=== PATIENT | female | born 1970 | race Caucasian/White ===

== ENCOUNTER 2017-06-29 22:42 | Inpatient (IN) | payer MEDICAID ==
[~2017-06-29] VITALS: Ht 165.1 cm; Wt 51.3 kg
[2017-06-29 22:53] VITALS: BP 143/93; PULSE 146; RESP 18; TEMP 97.8; O2SAT 100
[2017-06-29 22:56] VITALS: O2SAT 100; O2SAT 99
--- NOTE | 2017-06-29 22:58 | PD ---
HPI Chief Complaint: DM I, hyperglycemia Time Seen by Provider: 22:52 Travel History International Travel<30 days: No Contact w/Intl Traveler<30days: No Traveled to known affect area: No History of Present Illness HPI Patient is a 47-year-old female with history of type 1 diabetes, hypertension and seizures, presents to emergency room with complaints of nausea, vomiting and diarrhea for the past 2-3 days. Patient reports that her blood sugar has been reading high on her glucometer. Reports that she is supposed be on insulin for her diabetes, reports that she has not taken her insulin or her meds for hypertension or seizures for the past month. Patient reports that her primary care doctor stop seeing her, she did not find a new doctor to refill her prescription. Patient reports that she is very thirsty time, reports that "I think I may be in DKA." Patient reports no abdominal pain at this time, reports abdominal cramping. Patient with no fevers or chills, no chest pain or shortness breath at this time. PFSH Past Medical History Diabetes: Yes Hypertension: Yes Seizures: Yes Past Surgical History Surgical History: No Previous Surgery Social History Alcohol Use: No Tobacco Use: No Substance Use: No Allergies-Medications (Allergen,Severity, Reaction): Coded Allergies: No Known Allergies (Unverified , 06/29/17) Reported Meds & Prescriptions Reported Meds & Active Scripts Active Active Prescriptions or Reported Medications Unobtainable Review of Systems General / Constitutional: No: Fever Eyes: No: Visual changes HENT: No: Headaches Cardiovascular: No: Chest Pain or Discomfort Respiratory: No: Shortness of Breath Gastrointestinal: Positive: Nausea, Vomiting, Diarrhea, No: Abdominal Pain Genitourinary: No: Dysuria Musculoskeletal: No: Pain Skin: No Rash Neurologic: No: Weakness Psychiatric: No: Depression Endocrine: Positive: Polyuria, Polydipsia Hematologic/Lymphatic: No: Easy Bruising Physical Exam Narrative GENERAL: moderate distress SKIN: Focused skin assessment warm/dry. HEAD: Atraumatic. Normocephalic. EYES: Pupils equal and round. No scleral icterus. No injection or drainage. ENT: No nasal bleeding or discharge. Mucous membranes pink and moist. NECK: Trachea midline. No JVD. CARDIOVASCULAR: Tachycardic. No murmur appreciated. RESPIRATORY: No accessory muscle use. Clear to auscultation. Breath sounds equal bilaterally. GASTROINTESTINAL: Abdomen soft, non-tender, nondistended. Hepatic and splenic margins not palpable. MUSCULOSKELETAL: No obvious deformities. No clubbing. No cyanosis. No edema. NEUROLOGICAL: Awake and alert. No obvious cranial nerve deficits. Motor grossly within normal limits. Normal speech. PSYCHIATRIC: Anxious mood and affect; insight and judgment normal. Data Data Last Documented VS Vital Signs Date Time Temp Pulse Resp B/P (MAP) Pulse Ox O2 Delivery O2 Flow Rate FiO2 06/29/17 23:30 137 20 157/84 (108) 100 Nasal Cannula 2.00 06/29/17 22:53 97.8 Orders Orders Complete Blood Count With Diff (06/29/17 22:50) Comprehensive Metabolic Panel (06/29/17 22:50) Magnesium (Mg) (06/29/17 22:50) Beta Hydroxybutyrate (Acetone) (06/29/17 22:50) Urinalysis - C+S If Indicated (06/29/17 22:50) Blood Glucose (06/29/17 22:50) Ecg Monitoring (06/29/17 22:50) Iv Access Insert/Monitor (06/29/17 22:50) Oximetry (06/29/17 22:50) NPO (06/29/17 22:50) Arterial Blood Gas (Abg) (06/29/17 ) Ondansetron Inj (Zofran Inj) (06/29/17 23:00) Sodium Chlor 0.9% 1000 Ml Inj (Ns 1000 M (06/29/17 23:00) Sodium Chloride 0.9% Flush (Ns Flush) (06/29/17 23:00) Sodium Chlor 0.9% 1000 Ml Inj (Ns 1000 M (06/29/17 23:00) Electrocardiogram (06/29/17 ) Insulin Human Regular Inj (Novolin R Inj (06/30/17 00:15) Insulin Regular (Iv Infusion) (Novolin R (06/30/17 00:15) Potassium Chlor 20 Meq Premix (Kcl 20 Me (06/30/17 00:30) Admit To Inpatient (06/30/17 ) Continuing Education Instructor / Telemetry [email or web address].[email or web address] (06/30/17 00:26) ^ Insert Iv (06/30/17 00:26) ^ Teach Patient (06/30/17 00:26) Diet Npo (06/30/17 Breakfast) Bedside Glucose MAYDA.Q1H (06/30/17 00:26) Sodium Chlor 0.9% 1000 Ml Inj (Ns 1000 M (06/30/17 00:26) Dext 5%-Nacl 0.9% 1000 Ml Inj (D5w-Ns 10 (06/30/17 00:26) Insulin Regular (Iv Infusion) (Novolin R (06/30/17 02:01) Potassium Chlor 40 Meq Premix (Kcl 40 Me (06/30/17 00:30) Potassium Chlor 40 Meq Premix (Kcl 40 Me (06/30/17 00:30) Potassium Chlor 20 Meq Premix (Kcl 20 Me (06/30/17 00:30) Potassium Chlor 20 Meq Premix (Kcl 20 Me (06/30/17 00:30) Potassium Chlor 20 Meq Premix (Kcl 20 Me (06/30/17 00:30) Potassium Chlor 20 Meq Premix (Kcl 20 Me (06/30/17 00:30) Potassium Chlor 20 Meq Premix (Kcl 20 Me (06/30/17 00:30) Potassium Chlor 20 Meq Premix (Kcl 20 Me (06/30/17 00:30) Sodium Bicarbonate 8.4% Inj (Sodium Bica (06/30/17 00:30) Sodium Bicarbonate 8.4% Inj (Sodium Bica (06/30/17 00:30) Sodium Phosphate Inj (Sodium Phosphate I (06/30/17 00:30) Basic Metabolic Panel (Bmp) (06/30/17 05:26) Basic Metabolic Panel (Bmp) (06/30/17 11:26) Basic Metabolic Panel (Bmp) (06/30/17 17:26) Basic Metabolic Panel (Bmp) (06/30/17 23:26) Magnesium (Mg) (06/30/17 05:26) Magnesium (Mg) (06/30/17 11:26) Magnesium (Mg) (06/30/17 17:26) Magnesium (Mg) (06/30/17 23:26) Phosphorus (Po4) (06/30/17 05:26) Phosphorus (Po4) (06/30/17 11:26) Phosphorus (Po4) (06/30/17 17:26) Phosphorus (Po4) (06/30/17 23:26) Beta Hydroxybutyrate (Acetone) (06/30/17 11:26) Beta Hydroxybutyrate (Acetone) (06/30/17 23:26) ^ Initiate Protocol (06/30/17 00:26) Instruction (06/30/17 00:26) [facility] [place] Nursing Information (06/30/17 00:30) Chlorhexidine 2% Cloth (Chlorhexidine 2% (06/30/17 04:00) Chlorhexidine 2% Cloth (Chlorhexidine 2% (06/30/17 00:30) [facility]sa Pcr Surveillance (06/30/17 00:26) Inpatient Certification (06/30/17 ) Admit Order (Ed Use Only) (06/30/17 00:39) Labs Laboratory Tests Test 06/29/17 22:59 06/29/17 23:00 06/29/17 23:20 Blood Gas Puncture Site RT RADIAL Blood Gas Patient Temperature 98.6 Blood Gas HCO3 3 mmol/L Blood Gas Base Excess -25.5 mmol/L Blood Gas Oxygen Saturation 95 % Arterial Blood pH 7.18 Arterial Blood Partial Pressure CO2 7 mmHg Arterial Blood Partial Pressure O2 141 mmHG Arterial Blood Oxygen Content 24.4 Vol % Arterial Blood Carboxyhemoglobin 2.0 % Arterial Blood Methemoglobin 1.2 % Blood Gas Hemoglobin 18.1 G/DL Oxygen Delivery Device NASAL CANNULA Blood Gas Liter Flow 2 L/M White Blood Count 16.3 TH/MM3 Red Blood Count 6.35 MIL/MM3 Hemoglobin 19.1 GM/DL Hematocrit 57.6 % Mean Corpuscular Volume 90.6 FL Mean Corpuscular Hemoglobin 30.0 PG Mean Corpuscular Hemoglobin Concent 33.1 % Red Cell Distribution Width 13.4 % Platelet Count 315 TH/MM3 Mean Platelet Volume 9.9 FL Neutrophils (%) (Auto) 89.4 % Lymphocytes (%) (Auto) 6.1 % Monocytes (%) (Auto) 3.9 % Eosinophils (%) (Auto) 0.1 % Basophils (%) (Auto) 0.5 % Neutrophils # (Auto) 14.6 TH/MM3 Lymphocytes # (Auto) 1.0 TH/MM3 Monocytes # (Auto) 0.6 TH/MM3 Eosinophils # (Auto) 0.0 TH/MM3 Basophils # (Auto) 0.1 TH/MM3 CBC Comment DIFF FINAL Differential Comment Blood Urea Nitrogen 28 MG/DL Creatinine 2.04 MG/DL Random Glucose 664 MG/DL Total Protein 8.2 GM/DL Albumin 3.7 GM/DL Calcium Level 9.5 MG/DL Magnesium Level 1.8 MG/DL Alkaline Phosphatase 101 U/L Aspartate Amino Transf (AST/SGOT) 9 U/L Alanine Aminotransferase (ALT/SGPT) 12 U/L Total Bilirubin 0.8 MG/DL Sodium Level 124 MEQ/L Potassium Level 3.5 MEQ/L Chloride Level 84 MEQ/L Carbon Dioxide Level 5.7 MEQ/L Anion Gap 34 MEQ/L Estimat Glomerular Filtration Rate 26 ML/MIN B-Hydroxybutyrate 13.88 MMOL/L Urine Color LIGHT-YELLOW Urine Turbidity CLEAR Urine pH 5.0 Urine Specific [place] 1.016 Urine Protein NEG mg/dL Urine Glucose (UA) 1000 mg/dL Urine Ketones 150 mg/dL Urine Occult Blood NEG Urine Nitrite NEG Urine Bilirubin NEG Urine Urobilinogen LESS THAN 2.0 MG/DL Urine Leukocyte Esterase NEG Urine RBC 2 /hpf Urine WBC LESS THAN 1 /hpf Urine Bacteria RARE /hpf Microscopic Urinalysis Comment CULT NOT INDICATED MDM Medical Decision Making Medical Screen Exam Complete: Yes Emergency Medical Condition: Yes Interpretation(s) Vital Signs Date Time Temp Pulse Resp B/P (MAP) Pulse Ox O2 Delivery O2 Flow Rate FiO2 06/29/17 23:30 137 20 157/84 (108) 100 Nasal Cannula 2.00 06/29/17 22:56 100 Nasal Cannula 2.00 06/29/17 22:53 97.8 146 18 143/93 (110) 100 Laboratory Tests Test 06/29/17 22:59 06/29/17 23:00 06/29/17 23:20 Blood Gas Puncture Site RT RADIAL Blood Gas Patient Temperature 98.6 Blood Gas HCO3 3 mmol/L (22-26) Blood Gas Base Excess -25.5 mmol/L (-2-2) Blood Gas Oxygen Saturation 95 % (90-100) Arterial Blood pH 7.18 (7.380-7.420) Arterial Blood Partial Pressure CO2 7 mmHg (38-42) Arterial Blood Partial Pressure O2 141 mmHG (61-120) Arterial Blood Oxygen Content 24.4 Vol % (12.0-20.0) Arterial Blood Carboxyhemoglobin 2.0 % (0-4) Arterial Blood Methemoglobin 1.2 % (0-2) Blood Gas Hemoglobin 18.1 G/DL (12.0-16.0) Oxygen Delivery Device NASAL CANNULA Blood Gas Liter Flow 2 L/M White Blood Count 16.3 TH/MM3 (4.0-11.0) Red Blood Count 6.35 MIL/MM3 (4.00-5.30) Hemoglobin 19.1 GM/DL (11.6-15.3) Hematocrit 57.6 % (35.0-46.0) Mean Corpuscular Volume 90.6 FL (80.0-100.0) Mean Corpuscular Hemoglobin 30.0 PG (27.0-34.0) Mean Corpuscular Hemoglobin Concent 33.1 % (32.0-36.0) Red Cell Distribution Width 13.4 % (11.6-17.2) Platelet Count 315 TH/MM3 (150-450) Mean Platelet Volume 9.9 FL (7.0-11.0) Neutrophils (%) (Auto) 89.4 % (16.0-70.0) Lymphocytes (%) (Auto) 6.1 % (9.0-44.0) Monocytes (%) (Auto) 3.9 % (0.0-8.0) Eosinophils (%) (Auto) 0.1 % (0.0-4.0) Basophils (%) (Auto) 0.5 % (0.0-2.0) Neutrophils # (Auto) 14.6 TH/MM3 (1.8-7.7) Lymphocytes # (Auto) 1.0 TH/MM3 (1.0-4.8) Monocytes # (Auto) 0.6 TH/MM3 (0-0.9) Eosinophils # (Auto) 0.0 TH/MM3 (0-0.4) Basophils # (Auto) 0.1 TH/MM3 (0-0.2) CBC Comment DIFF FINAL Differential Comment Blood Urea Nitrogen 28 MG/DL (7-18) Creatinine 2.04 MG/DL (0.50-1.00) Random Glucose 664 MG/DL (74-106) Total Protein 8.2 GM/DL (6.4-8.2) Albumin 3.7 GM/DL (3.4-5.0) Calcium Level 9.5 MG/DL (8.5-10.1) Magnesium Level 1.8 MG/DL (1.5-2.5) Alkaline Phosphatase 101 U/L (45-117) Aspartate Amino Transf (AST/SGOT) 9 U/L (15-37) Alanine Aminotransferase (ALT/SGPT) 12 U/L (10-53) Total Bilirubin 0.8 MG/DL (0.2-1.0) Sodium Level 124 MEQ/L (136-145) Potassium Level 3.5 MEQ/L (3.5-5.1) Chloride Level 84 MEQ/L (98-107) Carbon Dioxide Level 5.7 MEQ/L (21.0-32.0) Anion Gap 34 MEQ/L (5-15) Estimat Glomerular Filtration Rate 26 ML/MIN (>89) B-Hydroxybutyrate 13.88 MMOL/L (0.00-0.39) Urine Color LIGHT-YELLOW (YELLW/STRAW) Urine Turbidity CLEAR (CLEAR) Urine pH 5.0 (5.0-8.5) Urine Specific [place] 1.016 (1.002-1.035) Urine Protein NEG mg/dL (NEG-TRACE) Urine Glucose (UA) 1000 mg/dL (NEG) Urine Ketones 150 mg/dL (NEG) Urine Occult Blood NEG (NEG) Urine Nitrite NEG (NEG) Urine Bilirubin NEG (NEG) Urine Urobilinogen LESS THAN 2.0 MG/DL (LESS Urine Leukocyte Esterase NEG (NEG) Urine RBC 2 /hpf (0-3) Urine WBC LESS THAN 1 /hpf (0-5) Urine Bacteria RARE /hpf (NONE) Microscopic Urinalysis Comment CULT NOT INDICATED Differential Diagnosis Differential includes DKA, electrolyte abnormality, gastroenteritis, gastritis Narrative Course Patient is a 47 year old female who presents to ER with c/o of nausea and vomiting and diarrhea for the past 2-3 days. Reports that she is an insulin dependent diabetic and has not taken her insulin in the past month as she ran out of her script. Reports that her glucometer was reading "high" at home. Patient uncomfortable on exam. BS here in ER was reading "high." Patient with most likely DKA at this time. Lab work including acetone ordered. ABG ordered. Patient was placed on a barn operator upon arrival to the emergency room. IVF as well as antiemetics ordered Vital Signs Date Time Temp Pulse Resp B/P (MAP) Pulse Ox O2 Delivery O2 Flow Rate FiO2 06/29/17 23:30 137 20 157/84 (108) 100 Nasal Cannula 2.00 06/29/17 22:56 100 Nasal Cannula 2.00 06/29/17 22:53 97.8 146 18 143/93 (110) 100 Laboratory Tests Test 06/29/17 22:59 06/29/17 23:00 06/29/17 23:20 Blood Gas Puncture Site RT RADIAL Blood Gas Patient Temperature 98.6 Blood Gas HCO3 3 mmol/L (22-26) Blood Gas Base Excess -25.5 mmol/L (-2-2) Blood Gas Oxygen Saturation 95 % (90-100) Arterial Blood pH 7.18 (7.380-7.420) Arterial Blood Partial Pressure CO2 7 mmHg (38-42) Arterial Blood Partial Pressure O2 141 mmHG (61-120) Arterial Blood Oxygen Content 24.4 Vol % (12.0-20.0) Arterial Blood Carboxyhemoglobin 2.0 % (0-4) Arterial Blood Methemoglobin 1.2 % (0-2) Blood Gas Hemoglobin 18.1 G/DL (12.0-16.0) Oxygen Delivery Device NASAL CANNULA Blood Gas Liter Flow 2 L/M White Blood Count 16.3 TH/MM3 (4.0-11.0) Red Blood Count 6.35 MIL/MM3 (4.00-5.30) Hemoglobin 19.1 GM/DL (11.6-15.3) Hematocrit 57.6 % (35.0-46.0) Mean Corpuscular Volume 90.6 FL (80.0-100.0) Mean Corpuscular Hemoglobin 30.0 PG (27.0-34.0) Mean Corpuscular Hemoglobin Concent 33.1 % (32.0-36.0) Red Cell Distribution Width 13.4 % (11.6-17.2) Platelet Count 315 TH/MM3 (150-450) Mean Platelet Volume 9.9 FL (7.0-11.0) Neutrophils (%) (Auto) 89.4 % (16.0-70.0) Lymphocytes (%) (Auto) 6.1 % (9.0-44.0) Monocytes (%) (Auto) 3.9 % (0.0-8.0) Eosinophils (%) (Auto) 0.1 % (0.0-4.0) Basophils (%) (Auto) 0.5 % (0.0-2.0) Neutrophils # (Auto) 14.6 TH/MM3 (1.8-7.7) Lymphocytes # (Auto) 1.0 TH/MM3 (1.0-4.8) Monocytes # (Auto) 0.6 TH/MM3 (0-0.9) Eosinophils # (Auto) 0.0 TH/MM3 (0-0.4) Basophils # (Auto) 0.1 TH/MM3 (0-0.2) CBC Comment DIFF FINAL Differential Comment Blood Urea Nitrogen 28 MG/DL (7-18) Creatinine 2.04 MG/DL (0.50-1.00) Random Glucose 664 MG/DL (74-106) Total Protein 8.2 GM/DL (6.4-8.2) Albumin 3.7 GM/DL (3.4-5.0) Calcium Level 9.5 MG/DL (8.5-10.1) Magnesium Level 1.8 MG/DL (1.5-2.5) Alkaline Phosphatase 101 U/L (45-117) Aspartate Amino Transf (AST/SGOT) 9 U/L (15-37) Alanine Aminotransferase (ALT/SGPT) 12 U/L (10-53) Total Bilirubin 0.8 MG/DL (0.2-1.0) Sodium Level 124 MEQ/L (136-145) Potassium Level 3.5 MEQ/L (3.5-5.1) Chloride Level 84 MEQ/L (98-107) Carbon Dioxide Level 5.7 MEQ/L (21.0-32.0) Anion Gap 34 MEQ/L (5-15) Estimat Glomerular Filtration Rate 26 ML/MIN (>89) B-Hydroxybutyrate 13.88 MMOL/L (0.00-0.39) Urine Color LIGHT-YELLOW (YELLW/STRAW) Urine Turbidity CLEAR (CLEAR) Urine pH 5.0 (5.0-8.5) Urine Specific [place] 1.016 (1.002-1.035) Urine Protein NEG mg/dL (NEG-TRACE) Urine Glucose (UA) 1000 mg/dL (NEG) Urine Ketones 150 mg/dL (NEG) Urine Occult Blood NEG (NEG) Urine Nitrite NEG (NEG) Urine Bilirubin NEG (NEG) Urine Urobilinogen LESS THAN 2.0 MG/DL (LESS Urine Leukocyte Esterase NEG (NEG) Urine RBC 2 /hpf (0-3) Urine WBC LESS THAN 1 /hpf (0-5) Urine Bacteria RARE /hpf (NONE) Microscopic Urinalysis Comment CULT NOT INDICATED patient with dka, case reviewed with robotics systems engineer who accepts pt to service Critical Care Narrative Aggregate critical care time was 30 minutes. Time to perform other separately billable procedures was not included in the critical care time. My time did not include minutes spent treating any other patients simultaneously or on activities that did not directly contribute to the patient's treatment. The services I provided to this patient were to treat and/or prevent clinically significant deterioration that could result in: , decompensation, deterioration I provided critical care services requiring my management, as noted below: Chart data review, documentation time, medication orders and management, vital sign assessments/reviewing monitor data, ordering and reviewing lab tests, ordering and interpreting/reviewing x-rays and diagnostic studies, care of the patient and discussion of the patient with the admitting physicians. Diagnosis Primary Impression: DKA, type 1 Additional Impression: Hyponatremia Admitting Information Admitting Physician Requests: Admit Scripts Unable to Obtain Active Prescriptions or Reported Meds Marilyn Henning DO Jun 29, 2017 22:58
[2017-06-29] MEDS ORDERED: SODIUM CHLORIDE 0.9% FLUSH 10 ML FLUSH IV FLUSH PRN (23:00)
[2017-06-29] MEDS ORDERED: ONDANSETRON HCL 4 MG/2 ML VIAL IVP ONE (23:00)
[2017-06-29] MEDS ORDERED: SODIUM CHLOR 0.9% 1000 ML INJ 1,000 ML IV SCH (23:00)
[2017-06-29] MEDS ORDERED: SODIUM CHLOR 0.9% 1000 ML INJ 1,000 ML IV ONE (23:00)
[2017-06-29 23:13] LABS: BLOOD GAS BASE EXCESS -25.5 mmol/L (-2-2); BLOOD GAS HCO3 3 mmol/L (22-26); BLOOD GAS METHEMOGLOBIN 1.2 % (0-2); BLOOD GAS O2 HGB SATURATION 95 % (90-100); BLOOD GAS OXYGEN CONTENT 24.4 Vol % (12.0-20.0); BLOOD GAS PCO2 7 mmHg (38-42); BLOOD GAS PO2 141 mmHG (61-120); BLOOD GAS TOTAL HGB 18.1 G/DL (12.0-16.0); TEMP CORR TO 98.6
[2017-06-29 23:14] LABS: CRITICAL VALUE YES; DRAW SITE RT RADIAL; LITER FLOW 2 L/M; NUMBER OF ARTERIAL PUNCTURES 1; OXYGEN DEVICE NASAL CANNULA; STAT YES; ULNAR PULSE PRESENT
[2017-06-29 23:16] LABS: AUTOMATED NEUTROPHIL # 14.6 TH/MM3 (1.8-7.7); BASOPHIL # 0.1 TH/MM3 (0-0.2); BASOPHIL % 0.5 % (0.0-2.0); EOSINOPHIL % 0.1 % (0.0-4.0); HEMATOCRIT 57.6 % (35.0-46.0); HEMO FLAGS DIFF FINAL; LYMPH % 6.1 % (9.0-44.0); MEAN CELL VOLUME 90.6 FL (80.0-100.0); MEAN CORPUSCULAR HGB CONC 33.1 % (32.0-36.0); MONO % 3.9 % (0.0-8.0); NEUT % 89.4 % (16.0-70.0); PLATELET COUNT 315 TH/MM3 (150-450); RED BLOOD COUNT 6.35 MIL/MM3 (4.00-5.30); RED CELL DISTRIBUTION WIDTH 13.4 % (11.6-17.2); WHITE BLOOD COUNT 16.3 TH/MM3 (4.0-11.0)
[2017-06-29 23:30] VITALS: BP 157/84; PULSE 137; RESP 20; O2SAT 100
[2017-06-29 23:32] LABS: BACTERIA, URINE RARE /hpf; BLOOD, URINE NEG (NEG); COMMENT (UR) CULT NOT INDICATED; CULTURE IF INDICATED CULT NOT INDICATED; GLUCOSE,URINE 1000 mg/dL (NEG); KETONE, URINE 150 mg/dL (NEG); NITRITE,URINE NEG (NEG); URINE COLOR LIGHT-YELLOW (YELLW/STRAW)
[2017-06-29 23:44] LABS: ALKALINE PHOSPHATASE 101 U/L (45-117); ALT (GPT) 12 U/L (10-53); ANION GAP 34 MEQ/L (5-15); AST (GOT) 9 U/L (15-37); BETA-HYDROXYBUTYRATE 13.88 MMOL/L (0.00-0.39); BICARBONATE 5.7 MEQ/L (21.0-32.0); BLOOD UREA NITROGEN 28 MG/DL (7-18); CHLORIDE 84 MEQ/L (98-107); GLOMERULAR FILTRATION RATE 26 ML/MIN (>89); MAGNESIUM 1.8 MG/DL (1.5-2.5); POTASSIUM 3.5 MEQ/L (3.5-5.1); TOTAL BILIRUBIN ADULT 0.8 MG/DL (0.2-1.0)
[2017-06-29 23:50] LABS: SODIUM (NA) 124 MEQ/L (136-145)
[2017-06-30] VITALS (9 sets, daily range): BP systolic 92–132; BP diastolic 53–78; PULSE 102–144; RESP 16–24; TEMP 97.6–100.4; O2SAT 96–99
[2017-06-30] MEDS ORDERED: INSULIN HUMAN REGULAR 1,000 UNITS/10 ML VIAL IV PUSH ONE (00:15)
[2017-06-30] MEDS: DEXT 5%-NACL 0.9% 1000 ML INJ 1,000 ML IV SCH ×5 (00:26→17:56)
[2017-06-30] MEDS ORDERED: CHLORHEXIDINE GLUCONATE 2 % 1 PACK (2 CLOTHS) TOP PRN (00:30)
[2017-06-30] MEDS ORDERED: POTASSIUM CHLOR 40 MEQ PREMIX 100 ML IV PRN ×2 (00:30)
[2017-06-30] MEDS ORDERED: SODIUM BICARBONATE 8.4% SOLN 50 MEQ/50 ML VIAL IV PRN ×2 (00:30)
[2017-06-30] MEDS ORDERED: POTASSIUM CHLOR 20 MEQ PREMIX 100 ML IV PRN ×5 (00:30)
[2017-06-30] MEDS ORDERED: MISCELLANEOUS NURSING INFORMATION XX SCH (00:30)
[2017-06-30] MEDS ORDERED: SODIUM PHOSPHATE INJ 15 MMOL in SODIUM CHLORIDE 0.9% INJ 100 ML IV PRN (00:30)
[2017-06-30] MEDS: SODIUM CHLOR 0.9% 1000 ML INJ 1,000 ML IV SCH ×6 (00:45→20:07)
[2017-06-30] MEDS: POTASSIUM CHLOR 20 MEQ PREMIX 100 ML IV SCH ×2 (00:46→04:06)
[2017-06-30] MEDS: INSULIN REGULAR (IV INFUSION) 100 UNITS in SODIUM CHLORIDE 0.9% INJ 99 ML IV SCH ×2 (00:47→13:49)
[2017-06-30] MEDS ORDERED: INSULIN REGULAR (IV INFUSION) 100 UNITS in SODIUM CHLORIDE 0.9% INJ 99 ML IV SCH (02:01)
[2017-06-30] MEDS ORDERED: HYDROmorphone HCL 2 MG TAB PO SCH (03:30)
[2017-06-30] MEDS: CHLORHEXIDINE GLUCONATE 2 % 1 PACK (2 CLOTHS) TOP SCH (03:36)
[2017-06-30] MEDS: ONDANSETRON HCL 4 MG/2 ML VIAL IV PUSH PRN ×4 (04:19→20:06)
--- NOTE | 2017-06-30 05:48 | HHI.HP ---
HPI Service Critical Care Medicine Primary Care Physician No Primary Care Physician Admission Diagnosis DKA Diagnosis: Travel History International Travel<30 Days: No Contact w/Intl Traveler <30 Da: No Traveled to Known Affected Are: No History of Present Illness 47-year-old female with history of type 1 diabetes, hypertension and seizures, presents to emergency room with complaints of nausea, vomiting and diarrhea for the past 2-3 days. Patient reports that her blood sugar has been reading high on her glucometer, supposed to be on insulin for her diabetes, however reports that she has not taken her insulin or her seizure medications neither hypertension medication for the past month. Her primary care doctor stop seeing her due to noncompliance, and she did not find a new doctor yet to refill her prescription. The lab work revealed hyperglycemia with diabetes ketoacidosis. She denies fevers chills or any other complaints. Review of Systems Constitutional: COMPLAINS OF: Fatigue, Change in appetite, DENIES: Diaphoretic episodes, Fever, Weight gain, Weight loss, Chills, Dizziness, Night Sweats Endocrine: COMPLAINS OF: Polydipsia, Polyuria, DENIES: Abnorml menstrual pattern, Heat/cold intolerance, Polyphagia Eyes: DENIES: Blurred vision, Diplopia, Eye inflammation, Eye pain, Vision loss , Photosensitivity, Double Vision Ears, nose, mouth, throat: DENIES: Tinnitus, Hearing loss, Vertigo, Nasal discharge, Oral lesions, Throat pain, Hoarseness, Ear Pain, Running Nose, Epistaxis, Sinus Pain, Toothache, Odynophagia Respiratory: DENIES: Apneas, Cough, Snoring, Wheezing, Hemoptysis, Sputum production, Shortness of breath Cardiovascular: DENIES: Chest pain, Palpitations, Syncope, Dyspnea on Exertion , PND, Lower Extremity Edema, Orthopnea, Claudication Gastrointestinal: DENIES: Abdominal pain, Black stools, Bloody stools, Constipation, Diarrhea, Nausea, Vomiting, Difficulty Swallowing, Anorexia Genitourinary: DENIES: Abnormal vaginal bleeding, Dysmenorrhea, Dyspareunia, Sexual dysfunction, Urinary frequency, Urinary incontinence, Urgency, Hematuria , Dysuria, Nocturia, Vaginal discharge Musculoskeletal: DENIES: Joint pain, Muscle aches, Stiffness, Joint Swelling, Back pain, Neck pain Integumentary: DENIES: Abnormal pigmentation, Pruritus, Rash, Nail changes, Breast masses, Breast skin changes, Nipple discharge Hematologic/lymphatic: DENIES: Bruising, Lymphadenopathy Immunologic/allergic: DENIES: Eczema, Urticaria Neurologic: DENIES: Abnormal gait, Headache, Localized weakness, Paresthesias, Seizures, Speech Problems, Tremor, Poor Balance Psychiatric: DENIES: Anxiety, Confusion, Mood changes, Depression, Hallucinations, Agitation, Suicidal Ideation, Homicidal Ideation, Delusions Past Family Social History Allergies: Coded Allergies: No Known Allergies (Unverified , 06/29/17) Past Medical History Insulin-dependent diabetes mellitus Seizure disorder Hypertension Past Surgical History Reported Medications Insulin Depakote Reported Meds & Active Scripts Active Active Prescriptions or Reported Medications Unobtainable Active Ordered Medications Current Medications Medications (Trade) Dose Ordered Sig/Kashif Route PRN Reason Start Time Stop Time Status Last Admin Dose Admin Sodium Chloride (NS Flush) 2 ml UNSCH PRN IV FLUSH FLUSH AFTER USING IV ACCESS 06/29/17 23:00 Sodium Chloride 1,000 ml @ 250 mls/hr Q4H IV 06/30/17 00:26 06/30/17 03:33 Dextrose/Sodium Chloride 1,000 ml @ 200 mls/hr Q5H IV 06/30/17 00:26 Insulin Human Regular 100 units/ Sodium Chloride 100 ml @ 0 mls/hr TITRATE IV 06/30/17 02:01 Potassium Chloride 100 ml @ 100 mls/hr Q1H PRN IV SEE LABEL COMMENTS 06/30/17 00:30 Potassium Chloride 100 ml @ 50 mls/hr Q2H PRN IV SEE LABEL COMMENTS 06/30/17 00:30 Potassium Chloride 100 ml @ 100 mls/hr Q1H PRN IV SEE LABEL COMMENTS 06/30/17 00:30 Potassium Chloride 100 ml @ 100 mls/hr Q1H PRN IV SEE LABEL COMMENTS 06/30/17 00:30 Potassium Chloride 100 ml @ 50 mls/hr Q2H PRN IV SEE LABEL COMMENTS 06/30/17 00:30 Potassium Chloride 100 ml @ 50 mls/hr Q2H PRN IV SEE LABEL COMMENTS 06/30/17 00:30 Potassium Chloride 100 ml @ 50 mls/hr Q2H PRN IV SEE LABEL COMMENTS 06/30/17 00:30 Potassium Chloride 100 ml @ 50 mls/hr Q2H PRN IV SEE LABEL COMMENTS 06/30/17 00:30 Sodium Bicarbonate (Sodium Bicarbonate 8.4% Inj) 100 meq UNSCH PRN IV SEE LABEL COMMENTS 06/30/17 00:30 Sodium Bicarbonate (Sodium Bicarbonate 8.4% Inj) 50 meq UNSCH PRN IV SEE LABEL COMMENTS 06/30/17 00:30 Sodium Phosphate 15 mmol/Sodium Chloride 105 ml @ 25 mls/hr UNSCH PRN IV SEE LABEL COMMENTS 06/30/17 00:30 Miscellaneous Information 1 [id number] XX 06/30/17 00:30 Chlorhexidine Gluconate (Chlorhexidine 2% Cloth) 3 pack Taper DAILY@04 TOP 06/30/17 04:00 06/26/18 03:59 Chlorhexidine Gluconate (Chlorhexidine 2% Cloth) 3 pack UNSCH PRN TOP HYGIENIC CARE 06/30/17 00:30 Ondansetron HCl (Zofran Inj) 4 mg Q4H PRN IV PUSH NAUSEA OR VOMITING 06/30/17 04:15 06/30/17 04:19 Family History Mother had diabetes Social History Denies tobacco, alcohol, or illicit drug abuse Physical Exam Vital Signs Vital Signs Date Time Temp Pulse Resp B/P (MAP) Pulse Ox O2 Delivery O2 Flow Rate FiO2 06/30/17 04:00 97.6 124 20 132/78 (96) 98 06/30/17 03:00 97.8 144 16 121/68 (85) 99 06/29/17 23:30 137 20 157/84 (108) 100 Nasal Cannula 2.00 06/29/17 22:56 100 Nasal Cannula 2.00 06/29/17 22:53 97.8 146 18 143/93 (110) 100 Physical Exam GENERAL: Well-nourished, well-developed patient, nauseated in moderate distress SKIN: Warm and dry. HEAD: Normocephalic. EYES: No scleral icterus. No injection or drainage. NECK: Supple, trachea midline. No JVD or lymphadenopathy. CARDIOVASCULAR: Regular rate and rhythm without murmurs, gallops, or rubs. RESPIRATORY: Breath sounds equal bilaterally. No accessory muscle use. GASTROINTESTINAL: Abdomen soft, non-tender, nondistended. MUSCULOSKELETAL: No cyanosis, or edema. BACK: Nontender without obvious deformity. NEURO EXAM: GCS: M 6 V 5 E 4 Mental Status: The patient is alert and oriented to person, place, and time with normal speech. Cranial Nerves: Visual acuity intact bilaterally. Visual zimmerman normal in all quadrants. Pupils are round, reactive to light. Extraocular movements are intact without ptosis. Hearing is normal bilaterally. Voice is normal. Tongue protrudes midline and moves symmetrically. Reflexes: Biceps, patellar, and Achilles are 2/4 bilaterally. No clonus. Laboratory Laboratory Tests Test 06/29/17 22:59 06/29/17 23:00 06/29/17 23:20 06/30/17 03:50 Blood Gas Puncture Site RT RADIAL Blood Gas Patient Temperature 98.6 Blood Gas HCO3 3 Blood Gas Base Excess -25.5 Blood Gas Oxygen Saturation 95 Arterial Blood pH 7.18 Arterial Blood Partial Pressure CO2 7 Arterial Blood Partial Pressure O2 141 Arterial Blood Oxygen Content 24.4 Arterial Blood Carboxyhemoglobin 2.0 Arterial Blood Methemoglobin 1.2 Blood Gas Hemoglobin 18.1 Oxygen Delivery Device NASAL CANNULA Blood Gas Liter Flow 2 White Blood Count 16.3 Red Blood Count 6.35 Hemoglobin 19.1 Hematocrit 57.6 Mean Corpuscular Volume 90.6 Mean Corpuscular Hemoglobin 30.0 Mean Corpuscular Hemoglobin Concent 33.1 Red Cell Distribution Width 13.4 Platelet Count 315 Mean Platelet Volume 9.9 Neutrophils (%) (Auto) 89.4 Lymphocytes (%) (Auto) 6.1 Monocytes (%) (Auto) 3.9 Eosinophils (%) (Auto) 0.1 Basophils (%) (Auto) 0.5 Neutrophils # (Auto) 14.6 Lymphocytes # (Auto) 1.0 Monocytes # (Auto) 0.6 Eosinophils # (Auto) 0.0 Basophils # (Auto) 0.1 CBC Comment DIFF FINAL Differential Comment Blood Urea Nitrogen 28 Creatinine 2.04 Random Glucose 664 Total Protein 8.2 Albumin 3.7 Calcium Level 9.5 Magnesium Level 1.8 Alkaline Phosphatase 101 Aspartate Amino Transf (AST/SGOT) 9 Alanine Aminotransferase (ALT/SGPT) 12 Total Bilirubin 0.8 Sodium Level 124 Potassium Level 3.5 Chloride Level 84 Carbon Dioxide Level 5.7 Anion Gap 34 Estimat Glomerular Filtration Rate 26 B-Hydroxybutyrate 13.88 Urine Color LIGHT-YELLOW Urine Turbidity CLEAR Urine pH 5.0 Urine Specific [place] 1.016 Urine Protein NEG Urine Glucose (UA) 1000 Urine Ketones 150 Urine Occult Blood NEG Urine Nitrite NEG Urine Bilirubin NEG Urine Urobilinogen LESS THAN 2.0 Urine Leukocyte Esterase NEG Urine RBC 2 Urine WBC LESS THAN 1 Urine Bacteria RARE Microscopic Urinalysis Comment CULT NOT INDICATED Result Diagram: 06/29/17229906/29/172299 Septic Shock Reassessment Peripheral Pulses: Bounding Right Radial Bounding Left Radial Bounding Right Popliteal Bounding Left Popliteal Caprini VTE Risk Assessment Caprini VTE Risk Assessment: No/Low Risk (score <= 1) Caprini Risk Assessment Model Point Value = 1 Point Value = 2 Point Value = 3 Point Value = 5 Age 41-60 Minor surgery BMI > 25 kg/m2 Swollen legs Varicose veins or History of unexplained or recurrent spontaneous Oral contraceptives or hormone replacement Sepsis (< 1 month) Serious lung disease, including pneumonia (< 1 month) Abnormal pulmonary function Acute myocardial infarction Congestive heart failure (< 1 month) History of inflammatory bowel disease Medical patient at bed rest Age 61-74 Arthroscopic surgery Major open surgery (> 45 min) Laparoscopic surgery (> 45 min) Malignancy Confined to bed (> 72 hours) Immobilizing plaster cast Central venous access Age >= 75 History of VTE Family history of VTE Factor V Leiden Prothrombin [id number] Lupus anticoagulant Anticardiolipin antibodies Elevated serum homocysteine Heparin-induced thrombocytopenia Other congenital or acquired thrombophilia Stroke (< 1 month) Elective arthroplasty Hip, pelvis, or leg fracture Acute spinal cord injury (< 1 month) Prophylaxis Regimen Total Risk Factor Score Risk Level Prophylaxis Regimen 0-1 Low Early ambulation 2 Moderate Order ONE of the following: *Sequential Compression Device (SCD) *Heparin 5000 units SQ BID 3-4 Higher Order ONE of the following medications: *Heparin 5000 units SQ TID *Enoxaparin/Lovenox 40 mg SQ daily (WT < 150 kg, CrCl > 30 mL/min) *Enoxaparin/Lovenox 30 mg SQ daily (WT < 150 kg, CrCl > 10-29 mL/min) *Enoxaparin/Lovenox 30 mg SQ BID (WT < 150 kg, CrCl > 30 mL/min) AND/OR *Sequential Compression Device (SCD) 5 or more Highest Order ONE of the following medications: *Heparin 5000 units SQ TID (Preferred with Epidurals) *Enoxaparin/Lovenox 40 mg SQ daily (WT < 150 kg, CrCl > 30 mL/min) *Enoxaparin/Lovenox 30 mg SQ daily (WT < 150 kg, CrCl > 10-29 mL/min) *Enoxaparin/Lovenox 30 mg SQ BID (WT < 150 kg, CrCl > 30 mL/min) AND *Sequential Compression Device (SCD) Assessment and Plan Assessment and Plan DKA - Insulin drip - IV hydration - Electrolytes monitor and replace when necessary Severe anion gap metabolic acidosis - Due to above - Insulin drip and fluids resuscitation Hyponatremia - Volume depleted - IV resuscitation Acute kidney injury - Dehydration - IV fluid replacement Seizure disorder - Depakote Hypertension - Labetalol when necessary DVT GI prophylaxis - Teds SCDs - Early aggressive mobilization - 1800 ADA diet when anion gap closes Critical Care: The total critical care time was 35 minutes. Time to perform other separately billable procedures was not included in the critical care time. Rey Hoffman MD Jun 30, 2017 5:48 am
[2017-06-30] MEDS ORDERED: LABETALOL HCL 100 MG/20 ML VIAL IV PUSH PRN (06:00)
[2017-06-30] MEDS ORDERED: SODIUM CHLOR 0.9% 1000 ML INJ 1,000 ML IV ONE ×2 (06:00)
[2017-06-30] MEDS: DIVALPROEX SODIUM E.R. 250 MG TAB PO SCH (08:28)
[2017-06-30 13:14] LABS: BICARBONATE 15.3 MEQ/L (21.0-32.0); MAGNESIUM 1.2 MG/DL (1.5-2.5)
[2017-06-30 13:17] LABS: POTASSIUM 2.8 MEQ/L (3.5-5.1)
[2017-06-30] MEDS: POTASSIUM CHLOR 20 MEQ PREMIX 100 ML IV PRN ×4 (14:20→20:06)
[2017-06-30 18:35] LABS: BICARBONATE 14.8 MEQ/L (21.0-32.0); POTASSIUM 3.2 MEQ/L (3.5-5.1)
[2017-06-30 18:36] LABS: BETA-HYDROXYBUTYRATE 2.06 MMOL/L (0.00-0.39)
[2017-06-30 19:01] LABS: CALCIUM-PROTEIN CORRECTED 8.2 MG/DL (8.5-10.1)
[2017-06-30] MEDS: MAGNESIUM SULFAT 1 GM PREMIX 100 ML x2 bags IV SCH ×2 (19:13→19:14)
[2017-07-01] VITALS (8 sets, daily range): BP systolic 91–156; BP diastolic 55–80; PULSE 90–109; RESP 19–23; TEMP 98–98.9; O2SAT 95–100
[2017-07-01 00:25] LABS: BETA-HYDROXYBUTYRATE 0.08 MMOL/L (0.00-0.39); BICARBONATE 17.2 MEQ/L (21.0-32.0); MAGNESIUM 1.5 MG/DL (1.5-2.5); POTASSIUM 3.2 MEQ/L (3.5-5.1)
[2017-07-01] MEDS: DEXT 5%-NACL 0.9% 1000 ML INJ 1,000 ML IV SCH ×2 (00:26→05:43)
[2017-07-01] MEDS: SODIUM CHLOR 0.9% 1000 ML INJ 1,000 ML IV SCH ×3 (00:26→08:26)
[2017-07-01] MEDS: CHLORHEXIDINE GLUCONATE 2 % 1 PACK (2 CLOTHS) TOP SCH ×2 (00:32→20:34)
[2017-07-01 00:45] LABS: CALCIUM-PROTEIN CORRECTED 8.2 MG/DL (8.5-10.1)
[2017-07-01] MEDS ORDERED: DC previous DKA orders (HMC 1917) ONE (01:00)
[2017-07-01] MEDS ORDERED: DC Insulin drip 2 hrs post basal insulin dose ONE (01:00)
[2017-07-01] MEDS ORDERED: DEXTROSE 50% IN WATER 50 ML VIAL(D50) IV PUSH PRN (01:00)
[2017-07-01] MEDS ORDERED: GLUCAGON 1 MG/ML VIAL OTHER PRN (01:00)
[2017-07-01] MEDS: POTASSIUM CHLOR 20 MEQ PREMIX 100 ML IV PRN ×4 (01:14→05:49)
[2017-07-01 04:44] LABS: HEMATOCRIT 36.4 % (35.0-46.0); MEAN CORPUSCULAR HEMOGLOBIN 30.3 PG (27.0-34.0); PLATELET COUNT 169 TH/MM3 (150-450); RED BLOOD COUNT 4.33 MIL/MM3 (4.00-5.30); RED CELL DISTRIBUTION WIDTH 13.1 % (11.6-17.2); WHITE BLOOD COUNT 6.4 TH/MM3 (4.0-11.0)
[2017-07-01 04:51] LABS: REVIEW FLAG FINAL
[2017-07-01 04:56] LABS: BICARBONATE 18.1 MEQ/L (21.0-32.0); MAGNESIUM 1.4 MG/DL (1.5-2.5); POTASSIUM 3.1 MEQ/L (3.5-5.1)
[2017-07-01 05:09] LABS: CALCIUM-PROTEIN CORRECTED 8.5 MG/DL (8.5-10.1)
[2017-07-01] MEDS: ACETAMINOPHEN 325 MG TAB PO PRN (05:47)
[2017-07-01] MEDS ORDERED: NS IV ONE ×2 (06:30)
[2017-07-01] MEDS ORDERED: MAGNESIUM SULFATE 1 GM PREMIX 100 ML IV ONE ×2 (06:30)
[2017-07-01] MEDS ORDERED: MAGNESIUM SULFATE IV ONE ×2 (06:30)
[2017-07-01] MEDS: INSULIN ASPART SUPPLEMENTAL SCALE SQ SCH ×4 (08:00→20:53)
[2017-07-01] MEDS: INSULIN DETEMIR 100 UNITS/ML VIAL SQ SCH (08:21)
[2017-07-01] MEDS: DIVALPROEX SODIUM E.R. 250 MG TAB PO SCH (08:22)
--- NOTE | 2017-07-01 13:33 | HHI.CCPN ---
Subjective Remarks/Hospital Course 47-year-old female with history of type 1 diabetes, hypertension and seizures, presents to emergency room with complaints of nausea, vomiting and diarrhea for the past 2-3 days. Patient reports that her blood sugar has been reading high on her glucometer, supposed to be on insulin for her diabetes, however reports that she has not taken her insulin or her seizure medications neither hypertension medication for the past month. Her primary care doctor stop seeing her due to noncompliance, and she did not find a new doctor yet to refill her prescription. The lab work revealed hyperglycemia with diabetes ketoacidosis. She denies fevers chills or any other complaints. Subjective: 07/01: No acute events overnight. The patient has been transitioned off of insulin infusion to Levemir daily. Anion gap closed. Patient tolerating 1800- calorie diabetic diet. Objective Vital Signs Date Time Temp Pulse Resp B/P (MAP) Pulse Ox O2 Delivery O2 Flow Rate FiO2 07/01/17 12:00 98.7 101 19 156/80 (105) 100 06/29/17 23:30 Nasal Cannula 2.00 Intake and Output 07/01/17 07/01/17 07/02/17 08:00 16:00 00:00 Intake Total 1780 ml 1200 ml Output Total 1900 ml Balance -120 ml 1200 ml Result Diagram: 07/01/17 0324 07/01/17 0326 Objective Remarks GENERAL: Well-nourished, well-developed patient in no acute distress SKIN: Warm and dry. HEAD: Normocephalic. EYES: No scleral icterus. No injection or drainage. NECK: Supple, trachea midline. No JVD or lymphadenopathy. CARDIOVASCULAR: Regular rate and rhythm without murmurs, gallops, or rubs. RESPIRATORY: Breath sounds equal bilaterally. No accessory muscle use. GASTROINTESTINAL: Abdomen soft, non-tender, nondistended. MUSCULOSKELETAL: No cyanosis, or edema. BACK: Nontender without obvious deformity. NEURO EXAM: GCS: M 6 V 5 E 4 Mental Status: The patient is alert and oriented to person, place, and time with normal speech. Cranial Nerves: Visual acuity intact bilaterally. Visual zimmerman normal in all quadrants. Pupils are round, reactive to light. Extraocular movements are intact without ptosis. Hearing is normal bilaterally. Voice is normal. Tongue protrudes midline and moves symmetrically. Reflexes: Biceps, patellar, and Achilles are 2/4 bilaterally. No clonus. A/P Assessment and Plan DKA-resolved - Insulin drip - IV hydration - Electrolytes monitor and replace when necessary Severe anion gap metabolic acidosis-resolved - Due to above - Insulin drip and fluids resuscitation -Patient now on Levemir 10 units daily, glucose monitoring continued Hyponatremia-resolved - Volume depleted - IV resuscitation Acute kidney injury-resolve - Dehydration - IV fluid replacement - 07/01-IV KVO Seizure disorder - Depakote Hypertension - Labetalol when necessary DVT GI prophylaxis - Teds SCDs - Early aggressive mobilization - 1800 ADA diet when anion gap closes Dispo: Level 2 Discussed with patient and PASTEURIZING SUPERVISOR at bedside. Plan transfer to [facility] in a.. Physician Lashae Maher MD Jul 01, 2017 13:33
[2017-07-01 16:59] LABS: MAGNESIUM 1.4 MG/DL (1.5-2.5); POTASSIUM 3.4 MEQ/L (3.5-5.1)
--- NOTE | 2017-07-01 21:09 | EKG ---
Date Performed: 06/29/2017 Time Performed: 23:15:19 PTAGE: 47 years EKG: SINUS TACHYCARDIA LEFT POSTERIOR FASCICULAR BLOCK MINIMAL ST DEPRESSION ABNORMAL ECG NO PREVIOUS TRACING DOCTOR: Florian Araiza Interpretating Date/Time 07/01/2017 20:58:40
[2017-07-02] VITALS (13 sets, daily range): BP systolic 115–143; BP diastolic 73–99; PULSE 85–107; RESP 14–17; TEMP 97–99; O2SAT 96–99
[2017-07-02 07:17] LABS: BICARBONATE 20.7 MEQ/L (21.0-32.0); MAGNESIUM 1.2 MG/DL (1.5-2.5); POTASSIUM 3.1 MEQ/L (3.5-5.1)
[2017-07-02] MEDS: INSULIN ASPART SUPPLEMENTAL SCALE SQ SCH ×4 (08:00→21:07)
[2017-07-02] MEDS: INSULIN DETEMIR 100 UNITS/ML VIAL SQ SCH (08:41)
[2017-07-02] MEDS: DIVALPROEX SODIUM E.R. 250 MG TAB PO SCH (08:41)
--- NOTE | 2017-07-02 15:47 | HHI.PR ---
Subjective Remarks Resting comfortably in bed No event overnight Denied chest and or short of breath No fever or chills, no abdominal pain nausea or vomiting Dehydration improved bicarbonate is 20 now, anion gap is closed Objective Vitals Vital Signs Date Time Temp Pulse Resp B/P (MAP) Pulse Ox O2 Delivery O2 Flow Rate FiO2 07/02/17 06:00 87 07/02/17 04:00 89 07/02/17 04:00 98.2 89 16 128/82 (97) 98 07/02/17 02:00 91 07/02/17 00:00 98.0 87 16 123/82 (96) 96 07/02/17 00:00 87 07/01/17 22:00 94 07/01/17 20:00 98.0 95 20 127/75 (92) 95 07/01/17 20:00 95 07/01/17 19:40 100 21 07/01/17 16:00 98.7 109 19 116/80 (92) 100 I/O 07/01/17 07/01/17 07/01/17 07/02/17 07/02/17 07/02/17 06:59 14:59 22:59 06:59 14:59 22:59 Intake Total 1780 ml 2200 ml 480 ml 600 ml Output Total 1900 ml 2600 ml 1500 ml Balance -120 ml 2200 ml -2120 ml -900 ml Intake Oral 480 ml 480 ml 600 ml IV Total 1300 ml 2200 ml 0 ml Output Urine Total 1900 ml 2600 ml 1500 ml # Voids 2 8 # Bowel Movements 0 0 Result Diagram: 07/01/17 0324 07/02/17 0436 Objective Remarks GENERAL: This is a well-nourished, well-developed patient, in no apparent distress. SKIN: No rashes, warm and dry HEAD: Atraumatic. Normocephalic. EYES: Pupils equal round and reactive. Extraocular motions intact. No scleral icterus. ENT: Nose without bleeding, or drainage, Airway patent. NECK: Trachea midline. Supple CARDIOVASCULAR: Regular rate and rhythm without murmurs, gallops, or rubs. RESPIRATORY: Fair air entry bilaterally. No wheezes, rales, or rhonchi. GASTROINTESTINAL: Abdomen soft, non-tender, nondistended. Positive bowel sounds MUSCULOSKELETAL: Extremities without clubbing, cyanosis, or edema. Pedal pulses appreciated NEUROLOGICAL: Awake and alert. Moves all extremity. Normal speech.no focal neurological deficit A/P Assessment and Plan 47 years old female admitted with Hypomagnesemia and hypokalemia hypophosphatemia DKA resolved Severe metabolic anion gap acidosis resolved Hypernatremia resolved SLOAN improved Severe dehydration Seizure disorder Hypertension DVT prophylaxis Plan: We'll replace magnesium and potassium phosphate iv, we need to make sure adequate replacement of electrolytes avoid any heart arrhythmia or muscle cramps Status post insulin drip and DKA protocol Anion gap closed, bicarbonate at 20 Patient looks very tired and debilitated, stated she did not have him health care provider to give her prescription for insulin Continue Levemir, Accu-Chek with sliding scale Will discharge in a.m. if BMP show better electrolyte reading Discharge Planning In a.m. Betito Celeste MD Jul 02, 2017 15:47
[2017-07-02] MEDS ORDERED: POTASSIUM PHOSPHATE INJ 30 MMOL in SODIUM CHLOR 0.9% 250 ML INJ 250 ML IV ONE (16:00)
[2017-07-02] MEDS: MAGNESIUM SULFATE 1 GM PREMIX 100 ML IV SCH ×2 (16:06→17:07)
[2017-07-02] MEDS: POTASSIUM PHOSPHATE MONOBASIC 500 MG TAB PO SCH (19:53)
[2017-07-03] VITALS: BP 110/80; PULSE 86; RESP 16; TEMP 97.6; O2SAT 96
[2017-07-03] MEDS: ACETAMINOPHEN 325 MG TAB PO PRN (01:25)
[2017-07-03 04:00] VITALS: BP 111/69; PULSE 84; RESP 15; TEMP 95; O2SAT 98
[2017-07-03] MEDS: CHLORHEXIDINE GLUCONATE 2 % 1 PACK (2 CLOTHS) TOP SCH (04:00)
[2017-07-03 06:50] LABS: BICARBONATE 25.7 MEQ/L (21.0-32.0); MAGNESIUM 1.2 MG/DL (1.5-2.5); POTASSIUM 3.1 MEQ/L (3.5-5.1)
[2017-07-03] MEDS: INSULIN DETEMIR 100 UNITS/ML VIAL SQ SCH (07:35)
[2017-07-03] MEDS: POTASSIUM PHOSPHATE MONOBASIC 500 MG TAB PO SCH (07:38)
[2017-07-03] MEDS: DIVALPROEX SODIUM E.R. 250 MG TAB PO SCH (07:38)
[2017-07-03] MEDS: INSULIN ASPART SUPPLEMENTAL SCALE SQ SCH ×2 (07:41→12:55)
[2017-07-03 08:00] VITALS: BP 115/75; PULSE 90; RESP 20; TEMP 96.7; O2SAT 98
[2017-07-03] MEDS ORDERED: LEVEMIR SQ (10:25)
[2017-07-03] MEDS ORDERED: DIVA250ER PO (10:25)
[2017-07-03] MEDS ORDERED: NOVOLOGSS SQ (10:25)
[2017-07-03] MEDS ORDERED: POTASSIUM CHLORIDE 10 MEQ CONTROLLED RELEASE TAB PO SCH (10:30)
--- NOTE | 2017-07-03 10:31 | HHI.DS ---
Discharge Summary Admission Date Jun 30, 2017 at 00:40 Discharge Date: Jul 03, 2017 Admitting Diagnosis DKA (1) Hyponatremia ICD Code: E87.1 - Hypo-osmolality and hyponatremia Status: Acute (2) DKA, type 1 ICD Code: E10.10 - Type 1 diabetes mellitus with ketoacidosis without coma Status: Acute (3) Metabolic acidosis ICD Code: E87.2 - Acidosis Procedures None Brief History - From Admission 47-year-old female with history of type 1 diabetes, hypertension and seizures, presents to emergency room with complaints of nausea, vomiting and diarrhea for the past 2-3 days. Patient reports that her blood sugar has been reading high on her glucometer, supposed to be on insulin for her diabetes, however reports that she has not taken her insulin or her seizure medications neither hypertension medication for the past month. Her primary care doctor stop seeing her due to noncompliance, and she did not find a new doctor yet to refill her prescription. The lab work revealed hyperglycemia with diabetes ketoacidosis. She denies fevers chills or any other complaints. CBC/BMP: 07/01/17 0324 07/03/17 0548 Significant Findings Laboratory Tests Test 06/30/17 12:10 06/30/17 17:39 06/30/17 23:47 07/01/17 03:24 Creatinine 1.20 MG/DL (0.50-1.00) 1.10 MG/DL (0.50-1.00) 1.11 MG/DL (0.50-1.00) Random Glucose 197 MG/DL (74-106) 180 MG/DL (74-106) 191 MG/DL (74-106) Calcium Level 7.5 MG/DL (8.5-10.1) 7.2 MG/DL (8.5-10.1) 7.0 MG/DL (8.5-10.1) Phosphorus Level 0.7 MG/DL (2.5-4.9) 0.5 MG/DL (2.5-4.9) 0.4 MG/DL (2.5-4.9) Magnesium Level 1.2 MG/DL (1.5-2.5) 1.0 MG/DL (1.5-2.5) Potassium Level 2.8 MEQ/L (3.5-5.1) 3.2 MEQ/L (3.5-5.1) 3.2 MEQ/L (3.5-5.1) Chloride Level 111 MEQ/L (98-107) 114 MEQ/L (98-107) 115 MEQ/L (98-107) Carbon Dioxide Level 15.3 MEQ/L (21.0-32.0) 14.8 MEQ/L (21.0-32.0) 17.2 MEQ/L (21.0-32.0) Estimat Glomerular Filtration Rate 48 ML/MIN (>89) 53 ML/MIN (>89) 53 ML/MIN (>89) Total Protein 5.2 GM/DL (6.4-8.2) 4.9 GM/DL (6.4-8.2) Protein Corrected Calcium 8.2 MG/DL (8.5-10.1) 8.2 MG/DL (8.5-10.1) B-Hydroxybutyrate 2.06 MMOL/L (0.00-0.39) Test 07/01/17 03:26 07/01/17 16:13 07/02/17 04:36 07/03/17 05:48 Blood Urea Nitrogen 6 MG/DL (7-18) 4 MG/DL (7-18) 6 MG/DL (7-18) Total Protein 4.9 GM/DL (6.4-8.2) Calcium Level 7.3 MG/DL (8.5-10.1) 8.0 MG/DL (8.5-10.1) 7.5 MG/DL (8.5-10.1) Phosphorus Level 0.4 MG/DL (2.5-4.9) 0.8 MG/DL (2.5-4.9) Magnesium Level 1.4 MG/DL (1.5-2.5) 1.4 MG/DL (1.5-2.5) 1.2 MG/DL (1.5-2.5) 1.2 MG/DL (1.5-2.5) Potassium Level 3.1 MEQ/L (3.5-5.1) 3.4 MEQ/L (3.5-5.1) 3.1 MEQ/L (3.5-5.1) 3.1 MEQ/L (3.5-5.1) Chloride Level 118 MEQ/L (98-107) 110 MEQ/L (98-107) Carbon Dioxide Level 18.1 MEQ/L (21.0-32.0) 20.7 MEQ/L (21.0-32.0) Estimat Glomerular Filtration Rate 69 ML/MIN (>89) 88 ML/MIN (>89) Random Glucose 214 MG/DL (74-106) 174 MG/DL (74-106) PE at Discharge GENERAL: This is a well-nourished, well-developed patient, in no apparent distress. SKIN: No rashes, warm and dry HEAD: Atraumatic. Normocephalic. EYES: Pupils equal round and reactive. Extraocular motions intact. No scleral icterus. ENT: Nose without bleeding, or drainage, Airway patent. NECK: Trachea midline. Supple CARDIOVASCULAR: Regular rate and rhythm without murmurs, gallops, or rubs. RESPIRATORY: Fair air entry bilaterally. No wheezes, rales, or rhonchi. GASTROINTESTINAL: Abdomen soft, non-tender, nondistended. Positive bowel sounds MUSCULOSKELETAL: Extremities without clubbing, cyanosis, or edema. Pedal pulses appreciated NEUROLOGICAL: Awake and alert. Moves all extremity. Normal speech.no focal neurological deficit Hospital Course 47 years old female who is diabetic admitted with severe DKA metabolic anion gap acidosis, hypernatremia, hypomagnesemia hypokalemia, SLOAN severe dehydration , patient had also a seizure disorder hypertension, patient placed on aggressive DKA protocol in the MICU, followed by the linux admin engineer, benign gap closed patient improved, placed back on basal insulin, and sliding scale, extensive diabetic education has been provided at discharge [id number] encounter performed with the patient on discharge day, as well as physical exam, summary of hospitalization course and postdischarge plan has been D/W the patient. With diabetic medication D/W nurse D/W rn case mgr. Discharge medications reviewed and printed and signed, post discharge follow up visit with PCP and other specialist as well as Brief hospital course and discharge summary has been placed. Pt Condition on Discharge: Fair Discharge Disposition: Discharge Home Discharge Time: > 30 minutes Discharge Instructions DIET: Follow Instructions for: Heart Healthy Diet, Diabetic Diet Activities you can perform: Weight Bearing as [place] New Medications: Divalproex ER (Depakote ER) 250 Mg Bella 250 MG PO DAILY for Seizure Control, #30 TAB Insulin Aspart Inj (Novolog Inj) 100 Unit/Ml Inj 1 UNIT SQ ACHS SLIDING SCALE for dm for 30 Days, INJECTION Insulin Detemir Inj (Levemir Inj) 1,000 unit/ 10 ML Vial 10 UNITS SQ DAILY for dm for 30 Days, INJECTION Do not mix with any other Insulin. Betito Celeste MD Jul 03, 2017 10:31
[2017-07-03 12:00] VITALS: BP 123/77; PULSE 88; RESP 20; TEMP 97.8; O2SAT 99
[2017-07-03] MEDS: MAGNESIUM SULFATE 1 GM PREMIX 100 ML IV SCH ×2 (12:48→12:58)
[2017-07-03] MEDS ORDERED: MAGNESIUM OXIDE 400 MG TAB PO SCH (21:00)
== END 2017-07-03 16:35 | disposition home or self-care (01) | DRG 638 ==
LOC: NEPE 22:42 → NEDA 06-30 00:40 → HIMW 06-30 03:00 → N06A 07-02 17:51
PROVIDERS: ADMIT Hospitalist; ATTEND Hospitalist
DX: E10.10 Type 1 diabetes mellitus with ketoacidosis without coma (principal); E87.1 Hypo-osmolality and hyponatremia; N17.9 Acute kidney failure, unspecified; E83.42 Hypomagnesemia; E83.39 Other disorders of phosphorus metabolism; G40.909 Epilepsy, unspecified, not intractable, without status epilepticus; Z79.4 Long term (current) use of insulin; Z91.14 Patient's other noncompliance with medication regimen; Z83.3 Family history of diabetes mellitus; E86.0 Dehydration; I10 Essential (primary) hypertension; E87.6 Hypokalemia
CPT/HCPCS: 36600; 76937; 80048; 80053; 80164; 81001; 82010; 82805; 82948; 83735; 84100; 84132; 84155; 85025; 85027; 87641; 93005; 96361; 96374; J1815; J1817; J2405; J3475; J3480; J7030; J7042; J7050

== ENCOUNTER 2017-07-30 15:56 | Emergency (ER) | payer MEDICAID ==
[~2017-07-30] VITALS: Ht 165.1 cm; Wt 55.0 kg
[~2017-07-30 15:56] MED LIST: DIVA250ER PO; LEVEMIR SQ; NOVOLOGSS SQ
[2017-07-30 15:57] VITALS: BP 156/83; PULSE 113; RESP 16; TEMP 98.4; O2SAT 98
[2017-07-30] MEDS ORDERED: CIPR-9 PO (17:00)
[2017-07-30 17:01] VITALS: BP 157/75; PULSE 92; RESP 16; O2SAT 97
--- NOTE | 2017-07-30 17:14 | PD ---
HPI Chief Complaint: Fall Time Seen by Provider: 17:05 Travel History International Travel<30 days: No Contact w/Intl Traveler<30days: No Traveled to known affect area: No History of Present Illness HPI 47-year-old female came to the emergency room along with her with history of getting lightheaded and falling backwards as she was climbing up the stairs. Patient was just discharged today from [facility] after a stay of 10-11 days for UTI in DKA. Patient was in the ICU for 6 days out of those. She says she never lost consciousness. After hitting the back of her head on the concrete she started bleeding. Her convinced her to come to the emergency room to get an x-ray. Vital signs are stable. I was told by the nurse that patient refused to do anything she just wanted an x-ray of her head. She tried to clean her scalp by herself in the restroom. No history of chest pain or palpitations. No history of any other complaints. Bedside blood glucose was 123. PFSH Past Medical History Narrative Medical List of her past medical, surgical, social and family history is reviewed from the nursing note. Diabetes: Yes Patient Takes Glucophage: Yes Hypertension: Yes Seizures: Yes Tetanus Vaccination: Unknown Influenza Vaccination: No ?: Unknown Past Surgical History Section: Yes Cholecystectomy: Yes Genitourinary Surgery: Yes (KIDNEY ) Social History Alcohol Use: No Tobacco Use: No Substance Use: No Allergies-Medications (Allergen,Severity, Reaction): Coded Allergies: No Known Allergies (Unverified , 07/30/17) Comments No known drug allergies. Reported Meds & Prescriptions Reported Meds & Active Scripts Active Levemir Inj (Insulin Detemir) 1,000 unit/ 10 ML Vial 10 Units SQ DAILY 30 Days Do not mix with any other Insulin. Novolog Inj (Insulin Aspart) 100 Unit/Ml Inj 1 Unit SQ ACHS SLIDING SCALE 30 Days Depakote ER (Divalproex Sodium) 250 Mg Bella 250 Mg PO DAILY Reported Cipro (Ciprofloxacin HCl) 500 Mg Tab 500 Mg PO BID Narrative Medication List of her home medications reviewed from the nursing note. Review of Systems Except as stated in HPI: all other systems reviewed are Neg Neurologic: Positive: Weakness Physical Exam Narrative GENERAL: Awake, alert, disheveled, emaciated, pale SKIN: Focused skin assessment warm/dry. Pale HEAD: Abrasion on the occipital area of the scalp with a hematoma that is oozing blood. EYES: Pupils equal and round. No scleral icterus. No injection or drainage. ENT: No nasal bleeding or discharge. Mucous membranes pink and moist. NECK: Trachea midline. No JVD. CARDIOVASCULAR: Regular rate and rhythm. No murmur appreciated. RESPIRATORY: No accessory muscle use. Clear to auscultation. Breath sounds equal bilaterally. GASTROINTESTINAL: Abdomen soft, non-tender, nondistended. Hepatic and splenic margins not palpable. MUSCULOSKELETAL: No obvious deformities. No clubbing. No cyanosis. No edema. NEUROLOGICAL: Awake and alert. No obvious cranial nerve deficits. Motor grossly within normal limits. Normal speech. PSYCHIATRIC: Appropriate mood and affect; insight and judgment normal. Data Data Last Documented VS [facility] Medical Decision Making Medical Screen Exam Complete: Yes Emergency Medical Condition: Yes Medical Record Reviewed: Yes Differential Diagnosis Intracranial bleed, PE, cardiac arrhythmia Narrative Course 6:01 PM I went to speak with the patient and my concern was possible PE given the fact that patient has been inpatient for prolonged period of time. She was tachycardic and had a near syncopal episode. I wanted to get a PE workup done along with the CAT scan of the head but patient refused. In fact at this point she just wanted to go home. She understood the risks of leaving. She was in full capacity to make decisions for herself and signed AGAINST MEDICAL ADVICE. Procedures EKG Prior to Arrival: No Diagnosis Primary Impression: Near syncope Additional Impression: Head injury Qualified Codes: S09.90XA - Unspecified injury of head, initial encounter Disposition: AGAINST MEDICAL ADVICE Condition: Serious Lena Park MD Jul 30, 2017 17:14
[2017-07-30 17:29] VITALS: BP_SYST 143; BP_SYST 147; BP_DIAS 83; BP_DIAS 86; BP_DIAS 91; RESP 15
[2017-07-30 17:59] VITALS: BP 143/72
== END 2017-07-30 18:06 | disposition left against medical advice (07) ==
LOC: NEPE 15:56
DX: R55 Syncope and collapse (principal); S09.90XA Unspecified injury of head, initial encounter; W10.9XXA Fall (on) (from) unspecified stairs and steps, initial encounter
CPT/HCPCS: 99281